=== PATIENT | female | born 1955 | race Two or more races ===

== ENCOUNTER 2025-09-01 09:46 | Day surgery (SDC) | payer OTHER ==
[~2025-09-01] VITALS: Ht 157.5 cm; Wt 70.3 kg
[2025-09-01] VITALS (8 sets, daily range): BP systolic 129–142; BP diastolic 75–89; PULSE 76–83; RESP 13–24; O2SAT 91–94
[~2025-09-01 09:46] MED LIST: CALC1TAB92 PO; CEL100T PO; CHOL100079 PO; GABA-1250 PO; NIFE1TAB31 PO
[2025-09-01] MEDS ORDERED: IOHEXOL 350 MG/ML 100ML IJ ONE (13:18)
[2025-09-01] MEDS ORDERED: fentaNYL CITRATE 100 MCG/2 ML VL ONE (13:57)
[2025-09-01] MEDS ORDERED: diphenhydrAMINE HCL 50 MG/1 ML VL ONE (13:57)
[2025-09-01] MEDS ORDERED: VERAPAMIL 2.5MG/ML INJ 2ML VIAL IV ONE (13:57)
[2025-09-01] MEDS ORDERED: HEPARIN SODIUM (PORCINE) 5000 UNITS/ML 1ML VIAL ONE (13:57)
[2025-09-01] MEDS ORDERED: methylPREDNISolone SOD SUCC 125 MG/2 ML VL ONE (13:57)
[2025-09-01] MEDS ORDERED: ANGIOMAX 250 MG VIAL IV ONE (13:57)
[2025-09-01] MEDS ORDERED: MIDAZOLAM HCL 2MG/2ML 2ml VIAL (1mg/ml) ONE (13:58)
[2025-09-01] MEDS ORDERED: FAMOTIDINE (10MG/ML) 2ML VL IV ONE (13:58)
[2025-09-01] MEDS ORDERED: SODIUM CHL 0.9% 0 ML ONE (13:58)
[2025-09-01] MEDS ORDERED: LIDOCAINE 2%HCL (LOCAL ANESTH.) INJ 20ML MDV ONE (13:58)
--- NOTE | 2025-09-01 14:23 | DVHOP2 ---
Operative Report - 2 Report Details Date: 09/01/25 Preop Diagnosis: CAD Postop Diagnosis: Normal coronaries Surgeon: Lv Urias MD Anesthesiologist: Conscious sedation Anesthesia: Mac, Local Consent: The patient was informed of the risks and benefits of the procedure. These include but are not limited to complications of anesthesia, postoperative infection, incomplete relief of symptoms, recurrence of symptoms, damage to blood vessels, nerves and tendons, deep venous thrombosis, pulmonary embolism and possible need for repeat surgery in the future. Complications: No complications Findings: Normal coronaries Indications for Surgery: Chest pain Name of Procedure Performed Left heart catheterization bilateral cine coronary angiography. Left ventriculography. Procedure Details Procedure Details: Prior local anesthesia with 2% lidocaine to the right wrist and full informed consent obtained the patient was prepped and draped in the usual fashion followed by placement of a six Greek sheath into the radial artery and a tiger catheter used for ventriculography and cannulation of both right and left coronary ostia without complications. Hemodynamics: Aortic blood pressure was 120/80. End-diastolic pressure was 12. There was no gradient across the aortic valve on pullback. Coronary anatomy: The RCA is large and dominant. PDA and posterolateral branches are normal as is the RCA. Left main is large and normal. Left anterior descending is large with no critical lesions in his proximal mid or distal segment. The LAD and diagonals are normal. Circumflex is large vessel codominant. Two obtuse marginals the circumflex is free of significant disease. Ventriculography REINA projection shows an EF of 60%. Impression: Normal left ventricular end-diastolic pressure at rest. Normal ejection fraction. No significant CAD. Recommendations: Medical therapy is warranted continue risk factor modification. Condition Good Disposition Home Date of Service: Sep 01, 2025 Billing Provider: LV UIRAS Sr., MD Cardiology Common Codes: 81461-VCOWYHA INP/OBS CARE (High) Cardiology Procedure Codes: 41450-JVSN HEART CATH W/INTRA INJ LV URIAS Sr., MD Sep 01, 2025 14:23
[2025-09-01] MEDS ORDERED: IODIXANOL 320MG/ML 100ML BTL IV ONE (14:28)
== END 2025-09-01 16:50 | disposition home or self-care (01) ==
LOC: CATH 09:46
PROVIDERS: ATTEND Internal Medicine
DX: I25.10 Atherosclerotic heart disease of native coronary artery without angina pectoris (principal); R07.9 Chest pain, unspecified; Z79.899 Other long term (current) drug therapy; Z87.891 Personal history of nicotine dependence; Z88.0 Allergy status to penicillin; Z88.1 Allergy status to other antibiotic agents; Z88.2 Allergy status to sulfonamides; Z88.5 Allergy status to narcotic agent; Z88.6 Allergy status to analgesic agent; Z91.041 Radiographic dye allergy status
CPT/HCPCS: 93458; C1769; C1894; J1200; J1644; J2250; J2919; J3010; J3490; Q9967; 99152